=== PATIENT | female | born 1990 | race Two or more races ===

== ENCOUNTER 2019-11-08 13:21 | Emergency (ER) | payer MEDICAID, OTHER ==
[~2019-11-08] VITALS: Ht 162.6 cm; Wt 67.6 kg
[2019-11-08 14:10] VITALS: BP 121/70
== END 2019-11-08 14:22 ==
LOC: EDBD 13:21 → ER 13:21
DX: I10 Essential (primary) hypertension (principal); F15.10 Other stimulant abuse, uncomplicated; F17.210 Nicotine dependence, cigarettes, uncomplicated; Z76.0 Encounter for issue of repeat prescription

== ENCOUNTER 2020-08-30 10:37 | Emergency (ER) | payer OTHER, MEDICAID ==
[~2020-08-30] VITALS: Ht 162.6 cm; Wt 74.8 kg
[2020-08-30] MEDS ORDERED: MORPHINE SULFATE 4 MG/ML SYR/VIAL IV ONE (11:45)
[2020-08-30] MEDS ORDERED: ONDANSETRON HCL 4 MG/2 ML VIAL IV ONE (11:45)
[2020-08-30] MEDS ORDERED: cefTRIAXone 1GM/50ML D5W 50 ML IV ONE (12:15)
[2020-08-30] MEDS ORDERED: cloNIDine HCL 0.1 MG TAB PO ONE (12:30)
[2020-08-30] MEDS ORDERED: LIDOCAINE W/ EPINEPHRINE 1% 20ML VIAL ONE (13:14)
[2020-08-30] MEDS ORDERED: TETANUS-DIPTH-ACEL PERTUSSIS 0.5ML SYR Tdap IM ONE (13:15)
[2020-08-30] MEDS ORDERED: LIDOCAINE W/ EPINEPHRINE 1% 20ML VIAL SC ONE (13:15)
[2020-08-30] MEDS ORDERED: LABETALOL HCL 5 MG/ML 4ML SYRINGE IV ONE (13:30)
[2020-08-30 14:02] VITALS: BP 144/89
== END 2020-08-30 13:35 | disposition home or self-care (01) ==
LOC: ER 10:37
DX: S09.90XA Unspecified injury of head, initial encounter (principal); S01.01XA Laceration without foreign body of scalp, initial encounter; I16.0 Hypertensive urgency; F17.210 Nicotine dependence, cigarettes, uncomplicated; X58.XXXA Exposure to other specified factors, initial encounter; Y93.89 Activity, other specified; Y92.89 Other specified places as the place of occurrence of the external cause; Y99.8 Other external cause status
CPT/HCPCS: 12002; 70450; 72125; 72170; 73552; 90471; 90715; 96365; 96375; 99285; J0696; J2270; J2405; J3490

== ENCOUNTER 2022-11-03 20:34 | Emergency (ER) | payer MEDICAID | END 2022-11-03 21:10 | disposition left against medical advice (07) | LOC: ER 20:34 | DX: T14.8XXA Other injury of unspecified body region, initial encounter (principal); Z53.21 Procedure and treatment not carried out due to patient leaving prior to being seen by health care provider; W57.XXXA Bitten or stung by nonvenomous insect and other nonvenomous arthropods, initial encounter; Y93.9 Activity, unspecified; Y92.9 Unspecified place or not applicable; Y99.9 Unspecified external cause status ==